=== PATIENT | female | born 1970 | race African-American/Black ===

== ENCOUNTER 2023-12-14 02:42 | Observation (INO) | payer OTHER, SELFPAY ==
[2023-12-14 03:26] LABS: Barbiturates NEGATIVE (NEGATIVE); Benzodiazepines NEGATIVE (NEGATIVE); Cocaine NEGATIVE (NEGATIVE); METHAMPHETAM NEGATIVE (NEGATIVE); Methadone NEGATIVE (NEGATIVE); Opiates NEGATIVE (NEGATIVE); Phencyclidine POSITIVE (NEGATIVE); THC Cannibis POSITIVE (NEGATIVE)
[2023-12-14 03:29] LABS: Absolute Basophils 0.1 K/uL (0-0.5); Absolute Eosinophils 0.1 K/uL (0-0.5); Absolute Lymphocytes (CBC) 1.8 K/uL (0.7-4.9); Absolute Monocytes 0.7 K/uL (0.1-1.3); Absolute Neutrophil 5.3 K/uL (1.8-8.0); Basophils % 0.8 % (0-1.3); Eosinophils % 1.6 % (0-4.4); Hematocrit 42.3 % (36.0-45.0); Hemoglobin 13.1 g/dL (12.0-15.0); MCH 27.1 pg (27.0-35.0); MCHC 31.1 g/dL (32.0-36.0); MCV 87.1 fL (80-100); MPV 10.1 fL (7.6-11.3); Monocytes % 9.1 % (3.3-12.3); Neutrophils % 66.5 % (41.7-73.7); Platelets 214 thou/uL (152-406); RBC Red Blood Cell Count 4.85 M/uL (3.86-4.86); Red Cell Distribution Width 14.7 % (12.1-15.2)
[2023-12-14 03:34] LABS: Potassium 3.5 mEq/L (3.5-5.1)
[2023-12-14 03:35] LABS: Bilirubin Direct 0.1 mg/dL (0-0.2); Bilirubin Indirect, Calculated 0.4 mg/dL (0.2-0.8); Bilirubin Total 0.5 mg/dL (0.2-1.0)
[2023-12-14 03:37] LABS: Anion Gap 5.5 mEq/L (5.0-15.0); PT Prothrombin Time 12.5 SECONDS (9.4-12.5); PTT, Activated Partial Thromb 30.4 SECONDS (24.3-36.9); Protime INR 1.12
[2023-12-14 03:38] LABS: Albumin 3.8 g/dL (3.4-5.0); Albumin/Globulin Ratio 0.9 (1.1-1.8); Globulin 4.2 g/dL (2.3-3.5); Magnesium 2.2
--- NOTE | 2023-12-14 03:50 | RAD REPORT ---
EXAM: XR Chest, 1 View CLINICAL HISTORY: altered mental status TECHNIQUE: Frontal view of the chest. COMPARISON: No relevant prior studies available. FINDINGS: Lungs: Coarsened interstitial markings. No focal consolidation. Pleural space: Unremarkable. No pneumothorax. Heart: Unremarkable. No cardiomegaly. Mediastinum: Unremarkable. Normal mediastinal contour. Bones/joints: Prior right AC joint separation. No acute fracture. IMPRESSION: No acute disease. Electronically signed by: Oksana Smith MD 12/14/2023 03:44 AM [facility] Due to temporary technical issues with the PACS/Evogen reporting system, reports are being gilberto d by the in-house radiologist without review as a courtesy to ensure prompt reporting the interpreting radiologist is fully responsible for the content of the report. Transcribed Date/Time: 12/14/2023 3:50 AM
--- NOTE | 2023-12-14 05:10 | ER ---
Nurse's Notes [facility] Name: Lien Gaffney Age: 53 yrs Sex: Female : 1970 Arrival Date: 12/14/2023 Time: 01:26 Bed 4 Private MD: Diagnosis: Altered mental status, unspecified;Hypertensive heart disease without heart failure Presentation: 12/13 01:38 Chief complaint: [place] [address] thought she was al5 in [place] driving home. patient confused AAOx1-2. Coronavirus screen: At this time, the client does not indicate any symptoms associated with coronavirus-19. Ebola Screen: No symptoms or risks identified at this time. Initial Sepsis Screen: Does the patient meet any 2 criteria? Does the patient have a suspected source of infection? No. Patient's initial sepsis screen is negative. Risk Assessment: Do you want to hurt yourself or someone else? Unable to obtain. Onset of symptoms was December 14, 2023. Care prior to arrival: IV initiated. 20 GA, in the left wrist. 01:38 Method Of Arrival: EMS: [facility] al5 01:38 Acuity: ADAM 2 al5 Triage Assessment: 01:40 General: Appears in no apparent distress. Behavior is cooperative, quiet. Pain: Denies al5 pain. EENT: No signs and/or symptoms were reported regarding the EENT system. Neuro: Level of Consciousness is awake, obeys commands, confused, Oriented to person, time. Cardiovascular: Capillary refill < 3 seconds Patient's skin is warm and dry. Respiratory: Airway is patent Respiratory effort is even, unlabored, Respiratory pattern is regular, symmetrical. GI: No signs and/or symptoms were reported involving the gastrointestinal system. : No signs and/or symptoms were reported regarding the genitourinary system. Derm: Skin is intact, is healthy with good turgor, Skin is pink, warm \\T\\ dry. normal. Musculoskeletal: No signs and/or symptoms reported regarding the musculoskeletal system. 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 - Infectious Disease History:: Denies. - Social history:: Smoking status: unknown. Screenin:40 [place] [facility] Protocol Exclusion Criteria: NPO for medical/surgical reason by provider al5 order Yes Brief Cognitive Screen What is your name? Normal, Where are you right now? Abnormal What year is it? Normal. Result: FAIL Notified: Ziyad BRENNAN. 01:43 [facility] ED Fall Risk Assessment (Adult) History of falling in the last 3 months, al5 including since admission No falls in past 3 months (0 pts) Confusion or Disorientation Yes (5 pts) Intoxicated or Sedated No (0 pts) Impaired Gait No (0 pts) Mobility Assist Device Used No (0 pt) Altered Elimination No (0 pt) Score/Fall Risk Level 3 or more points = High Risk Oriented to surroundings, Maintained a safe environment, Hourly rounding (assess needs \\T\\ fall precautionary measures) done. Abuse screen: Denies threats or abuse. Denies injuries from another. Nutritional screening: No deficits noted. Tuberculosis screening: No symptoms or risk factors identified. 05:24 [place] [facility] Protocol Exclusion Criteria: NPO for medical/surgical reason by provider al5 order No Brief Cognitive Screen What is your name? Normal, Where are you right now? Normal, What year is it? Normal. Result: PASS. Assessment: 01:13 General: Appears CONFUSED . Behavior is uncooperative, ATTEMPTING TO LEAVE, WALKING IN ha1 THE HALLWAYS. SECURITY , SUPPORT WORKER, JUAREZ CAIN AND THIS NURSE WITH PATIENT . 01:13 Reassessment: patient confused. patient attempting to leave room to leave hospital al5 walking in the hallways. attempted to bring patient back to her room but states "[she] needs to get the hell up on out of here." attempted to educate patient on the events that have occurred that has brought her to the hospital and that it is a safety concern to try to leave. security notified, senior data warehouse architect, and charge nurse along with this nurse with patient. 01:20 Reassessment: Patient and/or family updated on plan of care and expected duration. Pain ha1 level reassessed. PATIENT BACK IN THE ROOM. 01:43 Reassessment: see triage assessment. al5 03:00 General: Appears in no apparent distress. Behavior is calm, cooperative. Pain: Denies al5 pain. Neuro: Level of Consciousness is awake, Oriented to person. Cardiovascular: Capillary refill < 3 seconds Patient's skin is warm and dry. Respiratory: Airway is patent Respiratory effort is even, unlabored, Respiratory pattern is regular, symmetrical. GI: No signs and/or symptoms were reported involving the gastrointestinal system. : No signs and/or symptoms were reported regarding the genitourinary system. EENT: No signs and/or symptoms were reported regarding the EENT system. Derm: Skin is intact, is healthy with good turgor, Skin is pink, warm \\T\\ dry. normal. Musculoskeletal: No signs and/or symptoms reported regarding the musculoskeletal system. 04:28 Reassessment: Patient appears in no apparent distress at this time. Pain: Denies pain. 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 Cardiovascular: Patient's skin is warm and dry. Respiratory: Airway is patent Respiratory effort is even, unlabored, Respiratory pattern is regular, symmetrical. 05:13 Reassessment: Patient appears in no apparent distress at this time. No changes from al5 previously documented assessment. Patient and/or family updated on plan of care and expected duration. Pain level reassessed. Patient is alert, oriented x 3, equal unlabored respirations, skin warm/dry/pink. 07:07 Reassessment: gave report and passed stroke packet to JUAREZ elizalde. al5 07:26 Reassessment: Admission doctor at . Patient to be discharged when her ride arrives. ll1 Vital Signs: 01:00 BP 160 / 105; Pulse 85; Resp 18; Pulse Ox 100% on R/A; al5 01:15 BP 156 / 108; Pulse 82; Resp 16; Pulse Ox 100% on R/A; al5 01:30 BP 158 / 101; Pulse 85; Resp 16; Pulse Ox 100% on R/A; al5 01:38 BP 181 / 117; Pulse 88; Resp 18; Temp 98.2; Pulse Ox 98% on R/A; Weight 58.97 kg; al5 Height 5 ft. 8 in. ; 01:45 BP 177 / 116; Pulse 81; Resp 16; Pulse Ox 100% on R/A; al5 02:00 BP 154 / 98; Pulse 76; Resp 17; Pulse Ox 100% on R/A; al5 02:30 BP 154 / 98; Pulse 76; Resp 16; Pulse Ox 98% on R/A; al5 03:00 BP 137 / 79; Pulse 82; Resp 18; Pulse Ox 97% on R/A; al5 03:30 BP 160 / 93; Pulse 84; Resp 18; Pulse Ox 100% on R/A; al5 05:30 BP 152 / 106; Pulse 92; Resp 18; Pulse Ox 99% on R/A; al5 06:00 BP 125 / 86; Pulse 82; Resp 17; Pulse Ox 100% on R/A; al5 07:00 BP 138 / 97; Pulse 76; Resp 17; Pulse Ox 100% on R/A; Pain 0/10; ll1 01:38 Body Mass Index 19.77 (58.97 kg, 172.72 cm) al5 07:00 Pain Scale: Adult ll1 NIH Stroke Scale Scores: 01:40 NIHSS Score: 1 al5 ED Course: 01:26 Patient arrived in ED. jj6 01:29 Ziyad Daniel PA is PHCP. cp 01:29 Ziyad Catalan MD is Attending Physician. cp 01:38 Danette Lam RN is Primary Nurse. al5 01:40 Triage completed. al5 01:43 Arm band placed on right wrist. Patient placed in the treatment room, on a stretcher. al5 01:43 EKG done, by vet tech. af3 01:44 Patient has correct armband on for positive identification. Bed in low position. Call al5 light in reach. Side rails up X2. Provided Education on: plan of care. 01:44 No provider procedures requiring assistance completed. Maintain EMS IV. Dressing al5 intact. Good blood return noted. Site clean \\T\\ dry. Gauge \\T\\ site: 20G L wrist. Flushed with 10 mL NS. 03:28 Stroke CXR 1 View In Process Unspecified. EDMS 04:40 Head angio In Process Unspecified. EDMS 04:41 CT Neck Angio In Process Unspecified. EDMS 04:41 CT Stroke Brain w/o Contrast In Process Unspecified. EDMS 05:07 Yazmin Jhaveri MD is Hospitalizing Provider. cp 05:08 Steven Asif is Hospitalizing Provider. cp 05:44 Patient admitted, IV remains in place. al5 Administered Medications: 01:57 Drug: NS 0.9% IV 1000 ml IV at 1000 ml once; to be given as a bolus over 60 minutes ha1 Route: IV; Rate: 1000 ml; Site: left wrist; 05:22 Follow up: IV Status: Completed infusion; IV Intake: 1000ml al5 05:22 Follow up: Response: No adverse reaction al5 02:05 Drug: hydrALAZINE IVP 10 mg IVP once Route: IVP; Site: left wrist; ha1 05:22 Follow up: Response: No adverse reaction; Blood pressure is lowered al5 02:07 Drug: Ativan IVP 1 mg IVP once Route: IVP; Site: left wrist; ha1 05:22 Follow up: Response: No adverse reaction; Anxiety decreased al5 03:35 CANCELLED (Physician Discretion): [id number] mg IM once cp Medication: 01:44 VIS not applicable for this client. al5 Intake: 05:22 IV: 1000ml; Total: 1000ml. al5 Outcome: 05:09 Decision to Hospitalize by Provider. cp 07:31 Admitted to [facility] 07:31 Condition: stable 07:31 Instructed on the need for admit, 10:15 Patient left the ED. [facility] NIH Stroke Scale - NIH Stroke Score Date: 12/14/2023 Time: 01:40 Total Score = 1 10. Dysarthria (speech clarity - read or repeat words) - 0(Normal) 11. Extinction and Inattention (visual/tactile/auditory/spatial/personal) - 0(No abnormality) 1a. Level of Consciousness (LOC) - 0(Alert) 1b. Level of Consciousness (LOC) (Month \\T\\ Age) - 1(One) 1c. LOC Commands (Open \\T\\ Closes Eyes/Artificial Breeding Ranch Supervisor) - 0(Both) 2. Best Gaze (Lateral Gaze Paresis) - 0(Normal) 3. Visual Field Loss - 0(No visual loss) 4. Facial Palsy - 0(Normal) 5a. Left Arm: Motor (10-second hold) - 0(No drift) 5b. Right Arm: Motor (10-second hold) - 0(No drift) 6a. Left Leg: Motor (5-second hold - always test supine) - 0(No drift) 6b. Right Leg: Motor (5-second hold - always test supine) - 0(No drift) 7. Limb Ataxia (finger/nose \\T\\ heel/martinez - test with eyes open) - 0(Absent) 8. Sensory Loss (pinprick arms/legs/face) - 0(Normal) 9. Best Language: Aphasia (description/naming/reading) - 0(No aphasia) Initials: al5 Signatures: Dispatcher MedHost EDMS Ziyad Daniel PA PA cp Lewis, Lynsay, RN RN ll1 Deann Olmos jj6 Phyllis Avila RN RN ha1 Danette Lam RN RN al5 Adriana Stevens3
--- NOTE | 2023-12-14 05:10 | EDPHYS ---
Physician Documentation [facility] Name: Line Gaffney Age: 53 yrs Sex: Female : 1970 Arrival Date: 12/14/2023 Time: 01:26 Bed 4 Private MD: ED Physician Ziyad Catalan HPI: 12/13 01:33 This 53 yrs old Black or Female presents to ER via EMS with complaints cp of Altered Mental Status. 01:33 The patient presents with confusion, decreased mental status. Onset: The cp symptoms/episode began/occurred at an unknown time. Possible causes: unknown. 01:33 Current symptoms: In the emergency department the patient's symptoms are unchanged from cp the initial presentation, despite EMS interventions. Patient reportedly found walking down road by law enforcement. Unknown last normal. 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 - Infectious Disease History:: Denies. - Social history:: Smoking status: unknown. ROS: 01:35 Neuro: Positive for altered mental status, cp 01:35 Constitutional: Negative for fever, cp 01:35 Cardiovascular: Negative for chest pain, 01:35 Abdomen/GI: Negative for abdominal pain, 01:35 Unable to obtain ROS due to altered mental status, 01:35 Respiratory: Negative for cough, shortness of breath, wheezing, cp Exam: 01:38 Constitutional: The patient appears in no acute distress, alert, awake, cp non-diaphoretic, non-toxic, well developed, well nourished, 01:38 Head/Face: Normocephalic, atraumatic. cp 01:38 Eyes: Periorbital structures: appear normal, Pupils: equal, round, and reactive to light and accomodation, Extraocular movements: intact throughout, Conjunctiva: normal, no exudate, no injection, Sclera: no appreciated abnormality, Lids and lashes: appear normal, bilaterally, 01:38 ENT: External ear(s): are unremarkable, Nose: is normal, Mouth: Lips: moist, Oral mucosa: pink and intact, moist, Posterior pharynx: is normal, airway is patent, no erythema, no exudate, 01:38 Neck: C-spine: vertebral tenderness, is not appreciated, crepitus, is not appreciated, cp ROM/movement: is normal, is supple, without pain, no range of motions limitations, 01:38 Chest/axilla: Inspection: normal, 01:38 Cardiovascular: Rate: normal, Rhythm: regular, Edema: is not appreciated, JVD: is not appreciated, 01:47 ECG was reviewed by the Attending Physician. cp Vital Signs: 01:00 BP 160 / 105; Pulse 85; Resp 18; Pulse Ox 100% on R/A; al5 01:15 BP 156 / 108; Pulse 82; Resp 16; Pulse Ox 100% on R/A; al5 01:30 BP 158 / 101; Pulse 85; Resp 16; Pulse Ox 100% on R/A; al5 01:38 BP 181 / 117; Pulse 88; Resp 18; Temp 98.2; Pulse Ox 98% on R/A; Weight 58.97 kg; al5 Height 5 ft. 8 in. ; 01:45 BP 177 / 116; Pulse 81; Resp 16; Pulse Ox 100% on R/A; al5 02:00 BP 154 / 98; Pulse 76; Resp 17; Pulse Ox 100% on R/A; al5 02:30 BP 154 / 98; Pulse 76; Resp 16; Pulse Ox 98% on R/A; al5 03:00 BP 137 / 79; Pulse 82; Resp 18; Pulse Ox 97% on R/A; al5 03:30 BP 160 / 93; Pulse 84; Resp 18; Pulse Ox 100% on R/A; al5 05:30 BP 152 / 106; Pulse 92; Resp 18; Pulse Ox 99% on R/A; al5 06:00 BP 125 / 86; Pulse 82; Resp 17; Pulse Ox 100% on R/A; al5 07:00 BP 138 / 97; Pulse 76; Resp 17; Pulse Ox 100% on R/A; Pain 0/10; ll1 01:38 Body Mass Index 19.77 (58.97 kg, 172.72 cm) al5 07:00 Pain Scale: Adult ll1 NIH Stroke Scale Scores: 01:40 NIHSS Score: 1 al5 MDM: 01:32 Medical Screening Exam initiated cp 04:00 Data reviewed: vital signs, nurses notes, lab test result(s), EKG, radiologic studies, cp CT scan, plain films, I have discussed the patient's presentation/case with the attending Emergency Department Physician; and as a result, I will admit patient. 04:00 Differential Diagnosis: CVA, alcohol intoxication, intracranial bleed, overdose, cp seizure, sepsis, TIA, UTI. Management of patient was discussed with the following: Hospitalist: Arlin IMPORTER OR EXPORTER will admit to hospitalist services after discussion. I considered the following discharge prescriptions or medication management in the emergency department Medications were administered in the Emergency Department. See MAR. Independent interpretation of the following test(s) in the Emergency Department EKG: See my EKG interpretation above. 12/13 01:31 Order name: UDS; Complete Time: 03:28 12/13 03:32 Interpretation: Abnormal: PCP POSITIVE; THC POSITIVE. 12/13 01:31 Order name: ETOH Level; Complete Time: 03:33 cp 12/13 03:15 Order name: Basic Metabolic Panel; Complete Time: 03:47 EDMS 12/13 03:35 Interpretation: Normal except: CL 110; GLUC 119; GFR 89. 12/13 03:15 Order name: Liver (Hepatic) Function; Complete Time: 03:47 EDMS 12/13 03:47 Interpretation: Normal except: GLOB 4.2; A/G 0.9. 12/13 03:15 Order name: Troponin High Sensitivity; Complete Time: 03:47 EDMS 12/13 03:15 Order name: Magnesium; Complete Time: 03:47 EDMS 12/13 03:15 Order name: CBC with Automated Diff; Complete Time: 03:32 EDMS 12/13 03:32 Interpretation: Normal except: MCHC 31.1. 12/13 03:15 Order name: Protime (+INR); Complete Time: 03:47 EDMS 12/13 03:15 Order name: PTT, Activated Partial Thromb; Complete Time: 03:47 EDMS 12/13 09:18 Order name: Basic Metabolic Panel EDMS 12/13 09:18 Order name: Basic Metabolic Panel EDMS 12/13 09:18 Order name: Basic Metabolic Panel EDMS 12/13 09:18 Order name: CBC with Automated Diff EDMS 12/13 09:18 Order name: CBC with Automated Diff EDMS 12/13 09:18 Order name: CBC with Automated Diff EDMS 12/13 09:18 Order name: Magnesium EDMS 12/13 09:18 Order name: Magnesium EDMS 12/13 09:18 Order name: Magnesium EDMS 12/13 09:18 Order name: Phosphorus EDMS 12/13 09:18 Order name: Phosphorus EDMS 12/13 09:18 Order name: Phosphorus EDMS 12/13 09:18 Order name: Troponin High Sensitivity EDMS 12/13 09:18 Order name: Troponin High Sensitivity EDMS 12/13 09:18 Order name: Troponin High Sensitivity EDMS 12/13 09:18 Order name: Troponin High Sensitivity EDMS 12/13 01:31 Order name: CT Neck Angio cp 12/13 01:31 Order name: CT Stroke Brain w/o Contrast cp 12/13 01:31 Order name: Stroke CXR 1 View cp 12/13 04:40 Order name: Head angio EDMS 12/13 01:31 Order name: EKG; Complete Time: 03:13 cp 12/13 01:31 Order name: Accucheck; Complete Time: 01:05 cp 12/13 01:31 Order name: Cardiac monitoring; Complete Time: 01:39 cp 12/13 01:31 Order name: EKG - Nurse/Tech; Complete Time: 01:39 cp 12/13 01:31 Order name: IV Saline Lock; Complete Time: 01:05 cp 12/13 01:31 Order name: Labs collected and sent; Complete Time: 01:05 cp 12/13 01:31 Order name: NPO; Complete Time: 01:25 cp 12/13 01:31 Order name: O2 Per Protocol; Complete Time: 01:05 cp 12/13 01:31 Order name: O2 Sat Monitoring; Complete Time: 01:05 cp 12/13 01:31 Order name: Stroke Swallow Screen; Complete Time: 01:39 cp EC:47 Rate is 84 beats/min. Rhythm is regular. WI interval is normal. QRS interval is normal. cp QT interval is normal. T waves are Inverted in lead aVR. Interpreted by me. Reviewed by me. Administered Medications: 01:57 Drug: NS 0.9% IV 1000 ml IV at 1000 ml once; to be given as a bolus over 60 minutes ha1 Route: IV; Rate: 1000 ml; Site: left wrist; 05:22 Follow up: IV Status: Completed infusion; IV Intake: 1000ml al5 05:22 Follow up: Response: No adverse reaction al5 02:05 Drug: hydrALAZINE IVP 10 mg IVP once Route: IVP; Site: left wrist; ha1 05:22 Follow up: Response: No adverse reaction; Blood pressure is lowered al5 02:07 Drug: Ativan IVP 1 mg IVP once Route: IVP; Site: left wrist; ha1 05:22 Follow up: Response: No adverse reaction; Anxiety decreased al5 03:35 CANCELLED (Physician Discretion): [id number] mg IM once cp Disposition: 23:37 Chart complete. cp Disposition Summary: 12/14/23 05:09 Hospitalization Ordered Notes: Hospitalization Status: Observation cp Provider: Steven Asif cp Location: Telemetry/MedSurg (observation) cp Condition: Stable cp Problem: new cp Symptoms: have improved cp Bed/Room Type: Standard cp Room Assignment: 213(12/14/23 09:25) eb Diagnosis - Altered mental status, unspecified cp - Hypertensive heart disease without heart failure cp Forms: - Medication Reconciliation Form cp - SBAR form cp - Leadership Thank You Letter cp NIH Stroke Scale - NIH Stroke Score Date: 12/14/2023 Time: 01:40 Total Score = 1 10. Dysarthria (speech clarity - read or repeat words) - 0(Normal) 11. Extinction and Inattention (visual/tactile/auditory/spatial/personal) - 0(No abnormality) 1a. Level of Consciousness (LOC) - 0(Alert) 1b. Level of Consciousness (LOC) (Month \T\ Age) - 1(One) 1c. LOC Commands (Open \T\ Closes Eyes/Flame Planer) - 0(Both) 2. Best Gaze (Lateral Gaze Paresis) - 0(Normal) 3. Visual Field Loss - 0(No visual loss) 4. Facial Palsy - 0(Normal) 5a. Left Arm: Motor (10-second hold) - 0(No drift) 5b. Right Arm: Motor (10-second hold) - 0(No drift) 6a. Left Leg: Motor (5-second hold - always test supine) - 0(No drift) 6b. Right Leg: Motor (5-second hold - always test supine) - 0(No drift) 7. Limb Ataxia (finger/nose \T\ heel/martinez - test with eyes open) - 0(Absent) 8. Sensory Loss (pinprick arms/legs/face) - 0(Normal) 9. Best Language: Aphasia (description/naming/reading) - 0(No aphasia) Initials: al5 Signatures: Dispatcher [employer] EDZiyad Hobson MD MD cha Page, Corey, PA PA cp Katherine Cannon Heidy, RN RN ha1 Danette Lam RN RN al5 Corrections: (The following items were deleted from the chart) 01:30 This 53 yrs old Black or Female presents to ER via EMS cp with complaints of Altered Mental Status. cp 01:30 The patient presents with confusion, decreased mental status, cp cp : 01:30 Onset: The symptoms/episode began/occurred at an unknown time. cp cp : 01:30 Possible causes: unknown, cp cp 02:29 01:40 Constitutional: The patient appears in no acute distress, alert, awake, cp non-diaphoretic, non-toxic, well developed, well nourished, cp 03:23 03:13 BASIC METABOLIC PANEL+C.LAB.BRZ ordered. EDMS EDMS 03:23 03:13 HEPATIC FUNCTION+C.LAB.BRZ ordered. EDMS EDMS 03:23 03:13 Troponin High Sensitivity+C.LAB.BRZ ordered. EDMS EDMS 03:23 03:13 MAGNESIUM+C.LAB.BRZ ordered. EDMS EDMS 03:35 03:34 Geodon IM 10 mg IM once ordered. cp cp 03:40 03:13 CBC+H.LAB.BRZ ordered. EDMS EDMS 03:40 03:13 PROTIME (+INR)+COAG.LAB.BRZ ordered. EDMS EDMS 03:40 03:13 PTT, ACTIVATED+COAG.LAB.BRZ ordered. EDMS EDMS 09:25 05:09 cp eb
--- NOTE | 2023-12-14 05:58 | RAD REPORT ---
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 This exam was performed according to our departmental dose-optimization program, which includes automated exposure control, adjustment of the mA and/or kV according to patient size and/or use of it erative reconstruction technique. FINDINGS: No acute intracranial hemorrhage identified. No mass, mass effect, shift of the midline, abnormal ext ra-axial fluid collection or CT evidence of acute ischemic change identified. The ventricular system and sulcal spaces are age appropriate. Scattered areas of hypodensity throughout the suprate ntorial white matter are nonspecific and may be related to chronic small vessel ischemic change. The visualized paranasal sinuses and the mastoids are clear. No skull fracture identified. Visualiz ed orbits and globes are unremarkable. Atherosclerotic calcification of the intracranial internal carotid arteries. IMPRESSION: No acute intracranial abnormality by CT criteria. Electronically signed by: Talib Olivas DO 12/14/2023 02:10 AM [facility] RP [id number] Due to temporary technical issues with the PACS/PinMyPet reporting system, reports are being gilberto d by the in-house radiologist without review as a courtesy to ensure prompt reporting the interpreting radiologist is fully responsible for the content of the report. Transcribed Date/Time: 12/14/2023 5:57 AM
--- NOTE | 2023-12-14 05:58 | RAD REPORT ---
EXAM DESCRIPTION: CT HEAD ANGIOGRAPHY WITH IV CONTRAST (accession [id number]), CT NECK ANGIOGRAP HY WITH IV CONTRAST (accession [id number]) CLINICAL HISTORY: 53 years, Female, AMS, CONFUSION, SLURRED SPEECH COMPARISON: None. TECHNIQUE: Axial CTA images of the head and neck obtained following the uncomplicated intravenous adm inistration of iodinated contrast. 3-D/MIP reformatted images available. This exam was performed according to our departmental dose-optimization program, which includes automated exposure control, a djustment of the mA and/or kV according to patient size and/or use of iterative reconstruction technique. FINDINGS: CTA head: In the anterior circulation, the intracranial internal carotid arteries have normal course and calibe r. Minimal atherosclerotic calcification of the paraclinoid intracranial internal carotid arteries. The internal carotid arteries bifurcate into patent A1 and M1 segments of the anterior and middle cer ebral arteries respectively. No evidence of flow-limiting stenosis, aneurysm, occlusion, or dissection in the anterior circulation. The anterior communicating artery is patent. In the posterior circulation, the intracranial vertebral arteries combine to form a patent basilar ar benigno. Posterior cerebral arteries are patent. origin right posterior cerebral artery.. No evidence of stenosis, aneurysm, occlusion, or dissection in the posterior circulation. No definite acute intracranial abnormality identified. No acute abnormality of the osseous calvarium. Paranasal sinuses and mastoid air cells are well aerated. CTA NECK: The aortic arch has normal anatomic configuration. The origin of the great vessels are patent. The right common carotid artery is patent and bifurcates into patent internal and external carotid ar teries. 0% stenosis by NASCET criteria. No evidence of occlusion or dissection. The left common carotid artery is patent and bifurcates into patent internal and external carotid art eries. 0% stenosis by NASCET criteria. No evidence of occlusion or dissection. The cervical vertebral arteries are patent throughout their course. No evidence of occlusion, stenosi s, or dissection. No definite acute abnormalities in the neck soft tissues. No apical pneumothorax. No acute osseous ab normalities. Mild to moderate multilevel loss of intervertebral disc height with endplate spondylosis, facet arthropathy, and uncovertebral spurring. IMPRESSION: 1. No evidence of stenosis, occlusion, or aneurysm in the intracranial arterial circulation. 2. No evidence of stenosis/occlusion of the cervical carotid or vertebral arteries. Electronically signed by: Talib Olivas DO 12/14/2023 02:25 AM BIRTHING NURSE 4ZDM Due to temporary technical issues with the PACS/[employer] reporting system, reports are being gilberto d by the in-house radiologist without review as a courtesy to ensure prompt reporting the interpreting radiologist is fully responsible for the content of the report. Transcribed Date/Time: 12/14/2023 5:58 AM
--- NOTE | 2023-12-14 05:58 | RAD REPORT ---
EXAM DESCRIPTION: CT HEAD ANGIOGRAPHY WITH IV CONTRAST (accession [id number]), CT NECK ANGIOGRAP HY WITH IV CONTRAST (accession [id number]) CLINICAL HISTORY: 53 years, Female, AMS, CONFUSION, SLURRED SPEECH COMPARISON: None. TECHNIQUE: Axial CTA images of the head and neck obtained following the uncomplicated intravenous adm inistration of iodinated contrast. 3-D/MIP reformatted images available. This exam was performed according to our departmental dose-optimization program, which includes automated exposure control, a djustment of the mA and/or kV according to patient size and/or use of iterative reconstruction technique. FINDINGS: CTA head: In the anterior circulation, the intracranial internal carotid arteries have normal course and calibe r. Minimal atherosclerotic calcification of the paraclinoid intracranial internal carotid arteries. The internal carotid arteries bifurcate into patent A1 and M1 segments of the anterior and middle cer ebral arteries respectively. No evidence of flow-limiting stenosis, aneurysm, occlusion, or dissection in the anterior circulation. The anterior communicating artery is patent. In the posterior circulation, the intracranial vertebral arteries combine to form a patent basilar ar benigno. Posterior cerebral arteries are patent. origin right posterior cerebral artery.. No evidence of stenosis, aneurysm, occlusion, or dissection in the posterior circulation. No definite acute intracranial abnormality identified. No acute abnormality of the osseous calvarium. Paranasal sinuses and mastoid air cells are well aerated. CTA NECK: The aortic arch has normal anatomic configuration. The origin of the great vessels are patent. The right common carotid artery is patent and bifurcates into patent internal and external carotid ar teries. 0% stenosis by NASCET criteria. No evidence of occlusion or dissection. The left common carotid artery is patent and bifurcates into patent internal and external carotid art eries. 0% stenosis by NASCET criteria. No evidence of occlusion or dissection. The cervical vertebral arteries are patent throughout their course. No evidence of occlusion, stenosi s, or dissection. No definite acute abnormalities in the neck soft tissues. No apical pneumothorax. No acute osseous ab normalities. Mild to moderate multilevel loss of intervertebral disc height with endplate spondylosis, facet arthropathy, and uncovertebral spurring. IMPRESSION: 1. No evidence of stenosis, occlusion, or aneurysm in the intracranial arterial circulation. 2. No evidence of stenosis/occlusion of the cervical carotid or vertebral arteries. Electronically signed by: Talib Olivas DO 12/14/2023 02:25 AM CHIROPRACTIC ASSISTANT 4ZDM Due to temporary technical issues with the PACS/[employer] reporting system, reports are being gilberto d by the in-house radiologist without review as a courtesy to ensure prompt reporting the interpreting radiologist is fully responsible for the content of the report. Transcribed Date/Time: 12/14/2023 5:58 AM
[2023-12-14] MEDS ORDERED: ACETAMINOPHEN 325 MG TABLET PO PRN (09:12)
[2023-12-14] MEDS ORDERED: HYDRALAZINE HCL 20 MG/ML VIAL IV PRN (09:16)
[2023-12-14] MEDS ORDERED: NA CHLORIDE 0.9% 1,000 ML IV SCH (10:00)
[2023-12-14 10:54] VITALS: O2SAT 100
[2023-12-14 10:56] VITALS: BP 138/97
--- NOTE | 2023-12-14 15:33 | P.SSS ---
Patient History Date of Service: 12/14/23 Reason for admission: AMS History of Present Illness: Lien Gaffney is a 53 year old female with Pmhx hypertension and hyperlipidemia who presented to the ED with altered mental status. Is reported by EMS that she was found wandering in the streets with the police finding her and calling EMS. EMS reports elevated blood pressure. Upon arrival to the ED head CT was performed with no acute findings. Toxicology drawn showing PCP and THC, negative for alcohol. On evaluation, Lien was adamant to not stay for treatments. Explanation provided that she is needing IV fluids and blood pressure monitoring as well as continuous telemetry to continue monitoring substances in her system as well as her altered mental status episode. Family called and reassured her they were headed to pick her up. CARE INFORMATION ASSOCIATE spoke with the family reassuring it would be best to stay for further observation, family was not willing for her to stay. Lien Gaffney has decided to leave against medication advice and treatment. We have discussed the danger and limitations that will likely occur from leaving the hospital without treatment, specifically , stroke, and becoming unstable hemodynamically. Family and patient refused medical treatment. Chest xray reports "No acute disease" CT head reports "No acute intracranial abnormality by CT criteria." CTA head "No definite acute intracranial abnormality identified. No acute abnormality of the osseous calvarium. Paranasal sinuses and mastoid air cells are well aerated" CTA neck "1. No evidence of stenosis, occlusion, or aneurysm in the intracranial arterial circulation. 2. No evidence of stenosis/occlusion of the cervical carotid or vertebral arteries." Diagnosis Altered mental status 2/2 Substance Abuse Uncontrolled Hypertension - Past Medical/Surgical History -: HTN -: HLD -: Substance Abuse Past Surgical History: Patient denies surgical history Review of Systems is unable to be obtained (Lien denied) Physical Examination - Vital Signs Blood Pressure: 138/97 Pulse: 76 Respirations: 17 - Physical Exam General: Alert, In no apparent distress, Oriented x3, Cachectic, Other (slurred speech) HEENT: Atraumatic, Normocephalic Neck: JVD not distended Respiratory: Clear to auscultation bilaterally, Normal air movement Cardiovascular: Normal pulses, Regular rate/rhythm Capillary refill: <2 Seconds Gastrointestinal: Soft and benign Musculoskeletal: No clubbing Integumentary: No rashes Neurological: Normal speech, Normal tone - Studies Laboratory Data (last 24 hrs) 12/14/23 12/14/23 12/14/23 01:31 CLIENT SERVER DEVELOPER 01:31 CLIENT SERVER DEVELOPER 01:31 CLIENT SERVER DEVELOPER WBC Cancelled Hgb Cancelled Hct Cancelled Plt Count Cancelled PT Cancelled INR Cancelled APTT Cancelled Sodium Cancelled Potassium Cancelled BUN Cancelled Creatinine Cancelled Glucose Cancelled Magnesium Cancelled Total Bilirubin Cancelled AST Cancelled ALT Cancelled Alkaline Phosphatase Cancelled 12/14/23 12/14/23 12/14/23 00:47 00:47 00:47 WBC 8.00 Hgb 13.1 Hct 42.3 Plt Count 214 PT 12.5 INR 1.12 APTT 30.4 Sodium 141 Potassium 3.5 BUN 14 Creatinine 0.80 Glucose 119 H Magnesium 2.2 Total Bilirubin 0.5 AST 22 ALT 27 Alkaline Phosphatase 116 - Disposition Disposition: AMA-LEFT AGAINST MEDICAL ADVIC Condition: FAIR
--- NOTE | 2023-12-16 12:25 | EKG ---
Test Date: 2023-12-14 Test Time: 01:40:27 Medical Instrument Technician: AF MEASUREMENT RESULTS: Intervals: Rate: 84 MS: 134 QRSD: 82 QT: 356 QTc: 420 [place]: P: 52 MS: 134 QRS: 41 T: 42 INTERPRETIVE STATEMENTS: Normal sinus rhythm Possible Left atrial enlargement Nonspecific ST and T wave abnormality Abnormal ECG No previous ECG available for comparison Electronically Signed On 12-16-23 12:18:49 MEDICAL APPLIANCE MAKER by Smith Calvillo
== END 2023-12-14 10:00 | disposition left against medical advice (07) ==
LOC: ER 02:42 → ERHOLD 09:12
PROVIDERS: ADMIT Internal Medicine; ATTEND Internal Medicine
DX: R41.82 Altered mental status, unspecified (principal); I11.9 Hypertensive heart disease without heart failure; I10 Essential (primary) hypertension; E78.5 Hyperlipidemia, unspecified; F12.90 Cannabis use, unspecified, uncomplicated; F15.90 Other stimulant use, unspecified, uncomplicated; Z53.29 Procedure and treatment not carried out because of patient's decision for other reasons
CPT/HCPCS: 96361; 85025; 80048; 36415; 83735; 85610; 80076; 85730; 84484; 80307; 70496; 70498; 70450; 71045; 96375; 96374; 99285; 82077; Q9967; G0378; 93005